=== PATIENT | male | born 1955 | race Caucasian/White ===

== ENCOUNTER 2022-02-04 08:27 | Emergency (ER) | payer OTHER ==
[2022-02-04 08:56] VITALS: RESP 18; BMI 29.0
[2022-02-04 09:36] LABS: EPI CELLS 3 /uL (0-25.1); HYALINE CASTS 1 /uL (0-3.1); URINE APPEARANCE CLEAR; URINE BACTERIA 4 /uL (0-1359); URINE BILIRUBIN NEGATIVE (NEGATIVE); URINE COLOR RED; URINE GLUCOSE (UA) NEGATIVE (NEGATIVE); URINE KETONE NEGATIVE (NEGATIVE); URINE LEUK ESTERASE 1+ (NEGATIVE); URINE NITRITE NEGATIVE (NEGATIVE); URINE PROTEIN TRACE (NEGATIVE); URINE RBC 5676 /uL (0-23.9); URINE UROBILINOGEN 0.2 mg/dL (0.2-1.0); URINE WBC 107 /uL (0-25.8)
[2022-02-04 10:02] VITALS: BP 128/80; PULSE 83; TEMP 98.7
== END 2022-02-04 12:10 | disposition home or self-care (01) ==
LOC: JER 08:27
DX: R31.9 Hematuria, unspecified (principal)
CPT/HCPCS: 81003; 87086; 99283-25